=== PATIENT | male | born 1980 | race Caucasian/White ===

== ENCOUNTER 2020-04-02 14:57 | Emergency (ER) | payer MEDICAID ==
[~2020-04-02] VITALS: Ht 180.3 cm; Wt 70.3 kg
[2020-04-02 14:57] VITALS: BP 122/84
[2020-04-02] MEDS ORDERED: NALOXONE 0.4 MG/ML VIAL IM ONE (17:25)
[2020-04-02 18:33] VITALS: BP 103/64
== END 2020-04-02 18:33 | disposition home or self-care (01) ==
LOC: MED 14:57 → EDBD 14:57 → MED 18:33
DX: F19.10 Other psychoactive substance abuse, uncomplicated (principal); F11.90 Opioid use, unspecified, uncomplicated; F15.10 Other stimulant abuse, uncomplicated
CPT/HCPCS: 96372; 99283; J2310

== ENCOUNTER 2020-08-29 17:49 | Inpatient (IN) | payer MEDICAID, SELFPAY ==
[~2020-08-29] VITALS: Ht 180.3 cm; Wt 67.1 kg
[2020-08-29 18:05] VITALS: BP 148/64
--- NOTE | 2020-08-29 18:09 | NUR ---
Pt taken to bed 7 via wheelchair from triage.
--- NOTE | 2020-08-29 18:17 | NUR ---
39 y/o male A&OX4 c/o left foot pain and swelling X3days. Pain 9/10 throbbing constant radiating to ankle. Skin is non-intact between the first and second toes. Pt states he is unable to bear weight, took ibuprofen with no relief. Left foot is warm to touch, non-pitting edema +2, erythema noted up to ankle. PMH: HIV + RX: Christian ALFARO
--- NOTE | 2020-08-29 18:25 | NUR ---
Dr. Shaikh at the pt bedside for evaluation.
[2020-08-29] MEDS ORDERED: VANCOMYCIN 1,000 MG in DEXTROSE 5% 250 ML IV ONE (18:50)
--- NOTE | 2020-08-29 18:59 | NUR ---
20g iv placed to left ac, blood drawn at this time
[2020-08-29] MEDS ORDERED: cefTRIAXone 1,000 MG VIAL ONE (19:02)
--- NOTE | 2020-08-29 19:16 | NUR ---
Report given to Leonel GAYTAN, transfered care at this time.
[2020-08-29 19:19] LABS: BASOPHILS % (AUTO) 0.4 % (0.0-2.0); EOSINOPHILS % (AUTO) 0.2 % (0.0-4.0); HEMATOCRIT 39.5 % (36-52); HEMOGLOBIN 13.3 g/dL (12.0-18.0); LYMPHOCYTES # (AUTO) 1.5 K/uL (2.0-11.5); LYMPHOCYTES % (AUTO) 23.4 % (20.5-51.1); MEAN CORPUSCULAR HEMOGLOBIN 30 pg (27-31); MEAN CORPUSCULAR HGB CONC 34 g/dL (33-37); MONOCYTES # (AUTO) 0.9 K/uL (0.8-1.0); MONOCYTES % (AUTO) 13.6 % (1.7-9.3); NEUTROPHILS # (AUTO) 4.1 K/uL (1.8-7.7); NEUTROPHILS % (AUTO) 62.4 % (42.2-75.2); PLATELET COUNT (AUTO) 191 K/uL (140-450); RED BLOOD CELL COUNT(AUTO) 4.39 MIL/uL (4.20-6.10); RED CELL DISTRIBUTION WIDTH 13.1 % (11.6-13.7); WHITE BLOOD COUNT (AUTO) 6.6 K/uL (4.8-10.8)
--- NOTE | 2020-08-29 19:20 | NUR ---
RECEIVED REPORT FROM LUCILA FRASER FOR CONTINUITY OF CARE.
[2020-08-29 19:29] LABS: PROTHROMBIN TIME 9.9 secs (10.8-13.4)
[2020-08-29 19:30] LABS: ALBUMIN 3.3 g/dL (3.4-5.0); ANION GAP 12.9 (8-16); CARBON DIOXIDE 28.2 mmol/L (21-32); POTASSIUM 4.1 mmol/L (3.5-5.1); TOTAL BILIRUBIN 0.5 mg/dL (0.0-1.0)
[2020-08-29] MEDS ORDERED: VANCOMYCIN 1,000 MG VIAL ONE (19:32)
[2020-08-29] MEDS ORDERED: CLINDAMYCIN 600 MG in DEXTROSE 5% 50 ML IV SCH (20:20)
--- NOTE | 2020-08-29 20:47 | NUR ---
PT RESTING IN BED, HOB ELEVATED. RR EVEN AND UNLABORED. NO NEW CONCERNS AT THIS TIME. BED LOCKED AND IN LOWEST POSITION, SIDE RAIL UPX1. WILL CONTINUE TO MONITOR.
[2020-08-29] MEDS ORDERED: MORPHINE SULFATE 4 MG/ML SYR IVP ONE (21:35)
[2020-08-29] MEDS ORDERED: guaiFENesin DM 200/20 MG-10 ML 10 ML UDC PO PRN (21:45)
[2020-08-29] MEDS ORDERED: ONDANSETRON 4 MG/2 ML VIAL IM/IVP PRN (21:45)
[2020-08-29] MEDS ORDERED: POTASSIUM CHLORIDE 10 MEQ TABER PO PRN (21:45)
[2020-08-29] MEDS ORDERED: DEXT 5% /NACL 0.9% 1,000 ML IV SCH (21:45)
[2020-08-29] MEDS ORDERED: DOCUSATE SODIUM 100 MG GELCAP PO PRN (21:45)
[2020-08-29] MEDS ORDERED: ACETAMINOPHEN 325 MG TAB PO PRN (21:45)
[2020-08-29] MEDS ORDERED: ZOLPIDEM 5 MG TAB PO PRN (21:45)
--- NOTE | 2020-08-29 21:50 | NUR ---
DR. MARY ESCAMILLA REQUESTED PAIN MEDICATIONS FOR PT PRIOR TO WOUND TREATMENT. SNEHA MADE AWARE AND GAVE NEW ORDER FOR MORPHINE 4MG IVP.
--- NOTE | 2020-08-29 22:26 | NUR ---
JEWELL SWAB COLLECTED AND WALKED OVER TO LAB.
[2020-08-29 22:37] LABS: CHOL/HDL RATIO 2.2 (1-4.5); FREE T4 (FREE THYROXINE) 1.08 ng/dL (0.76-1.46); MAGNESIUM 1.8 mg/dL (1.8-2.4); PHOSPHORUS 3.7 mg/dL (2.5-4.9); THYROID STIMULATING HORMONE 1.42 uIU/mL (0.34-3.74)
--- NOTE | 2020-08-29 22:43 | NUR ---
UA COLLECTED AND WALKED OVER TO LAB.
--- NOTE | 2020-08-29 22:51 | NUR ---
PT SLEEPING IN BED, HOB ELEVATED. CHEST RISE AND FALL NOTED. NO NEW CONCERNS AT THIS TIME. PT ATTACHED TO PROCESS EXCELLENCE MANAGER AND PULSE OXIMETRY. BED LOCKED AND IN LOWEST POSITION, SIDE RAIL UPX1. WILL CONTINUE TO MONITOR.
--- NOTE | 2020-08-29 23:45 | NUR ---
GAVE REPORT TO LUCILA STUBBS REGARDING PT STATUS.
[2020-08-29] MEDS ORDERED: ELVI1TAB2 PO (23:52)
[2020-08-29 23:54] LABS: APPEARANCE,URINE CLEAR (CLEAR); BILIRUBIN,URINE NEGATIVE (NEGATIVE); BLOOD, URINE NEGATIVE (NEGATIVE); COLOR,URINE YELLOW (YELLOW); LEUKOCYTE ESTERASE ,URINE NEGATIVE (NEGATIVE); NITRITE, URINE NEGATIVE (NEGATIVE); UGLUCOSE NEGATIVE (NEGATIVE)
[2020-08-30 00:15] VITALS: BP 111/64
--- NOTE | 2020-08-30 00:15 | NUR ---
RECEIVED PATIENT FROM ER VIA WHEELCHAIR IN STABLE CONDITION FOR CONTINUITY OF CARE. AAOX4. RESPIRATIONS EVEN, UNLABORED. NO C/O PAIN. NO S/S ACUTE DISTRESS. SKIN ASSESSMENT COMPLETE. MD DID FIRST DRESSING IN THE ER. DRESSING TO LEFT FOOT CLEAN/DRY AND INTACT. IV SITE TO LEFT AC 20G PATENT/INTACT, INFUSING FLUIDS WELL. ABDOMEN SOFT, NONTENDER, NONDISTENDED. BOWEL SOUNDS ACTIVE X4 QUADRANTS. PATIENT IS CONTINENT OF B/B. ORIENTED TO ROOM/STAFF AND CALL LIGHT. MRSA SCREEN COMPLETED. SAFETY PRECAUTIONS IN PLACE. CALL LIGHT WITHIN REACH AT ALL TIMES.
[2020-08-30 00:27] LABS: BARBITURATE, URINE NEGATIVE ng/ml (NEG <=200); BENZODIAZEPINE, URINE NEGATIVE ng/mL (NEG <=200); CANNABINOID, URINE NEGATIVE ng/mL (NEG <=50); COCAINE, URINE NEGATIVE ng/mL (NEG <=300); OPIATE, URINE NEGATIVE ng/mL (NEG <=2000); PHENCYCLIDINE SCREEN,URINE NEGATIVE ng/mL (NEG <=25)
--- NOTE | 2020-08-30 00:27 | NUR ---
Patient will be admitted to care of DR. ESCAMILLA. Admited to MED-SURG. Will go to room 104A. Belongings list completed. Report to LUCILA STUBBS.
--- NOTE | 2020-08-30 01:48 | NUR ---
PATIENT IS ASLEEP. NO S/S ACUTE DISTRESS. CALL LIGHT WITHIN REACH.
--- NOTE | 2020-08-30 03:52 | NUR ---
MADE ROUNDS. PATIENT IS ASLEEP. NO S/S ACUTE DISTRESS. CALL LIGHT WITHIN REACH.
--- NOTE | 2020-08-30 05:30 | NUR ---
PATIENT ASLEEP. NO S/S ACUTE DISTRESS. CALL LIGHT WITHIN REACH.
[2020-08-30 08:00] VITALS: BP 108/63
[2020-08-30 08:07] LABS: BASOPHILS % (AUTO) 0.5 % (0.0-2.0); EOSINOPHILS # (AUTO) 0.1 K/uL (0-0.4); EOSINOPHILS % (AUTO) 1.3 % (0.0-4.0); HEMATOCRIT 37.9 % (36-52); HEMOGLOBIN 12.6 g/dL (12.0-18.0); LYMPHOCYTES # (AUTO) 1.3 K/uL (2.0-11.5); LYMPHOCYTES % (AUTO) 24.1 % (20.5-51.1); MEAN CORPUSCULAR HEMOGLOBIN 30 pg (27-31); MEAN CORPUSCULAR HGB CONC 33 g/dL (33-37); MEAN CORPUSCULAR VOLUME 90.3 fL (80-94); MONOCYTES # (AUTO) 0.9 K/uL (0.8-1.0); NEUTROPHILS % (AUTO) 57.1 % (42.2-75.2); PLATELET COUNT (AUTO) 182 K/uL (140-450); RED CELL DISTRIBUTION WIDTH 13.1 % (11.6-13.7); WHITE BLOOD COUNT (AUTO) 5.2 K/uL (4.8-10.8)
[2020-08-30 08:10] LABS: ANION GAP 9.9 (8-16); CARBON DIOXIDE 27.8 mmol/L (21-32); CREATININE 0.8 mg/dL (0.6-1.3); POTASSIUM 3.7 mmol/L (3.5-5.1)
--- NOTE | 2020-08-30 08:31 | NUR ---
PATIENT HAS BEEN SCREENED AND CATEGORIZED HIGH NUTRITION RISK. PATIENT WILL BE SEEN WITHIN 1-2 DAYS OF ADMISSION. 08/30/20-08/31/[address]
[2020-08-30] MEDS: PANTOPRAZOLE 40 MG TABEC PO SCH ×2 (08:52→09:26)
[2020-08-30] MEDS: HYDROcodone/APAP 7.5/325 MG 1 TAB PO PRN ×2 (10:11→18:38)
--- NOTE | 2020-08-30 10:11 | NUR ---
NORCO GIVEN FOR LEFT FOOT PAIN 03/23, PER PATIENT'S REQUEST. EDUCATION PROVIDED. SAFETY MEASURES IN PLACE, CALL LIGHT WITHIN REACH. WILL CONTINUE TO MONITOR.
--- NOTE | 2020-08-30 11:35 | NUR ---
DC PLANNIN YRS OLD MALE PATIENT WAS ADMITTED FROM HOME WITH A DX OF METATARSAL FRACTURE, CELLULITIS. PT HAS NO MEDICAL HISTORY. FOOT XRAY SHOWED SMALL INTRA-ARTICULAR FRACTURE AT THE BASE OF THE METATARSAL. XR LEFT TIBIAL/FIBULA SHOWED INTACT LEFT TIBIA AND FIBULA AND SOFT TISSUE SWELLING AROUND THE MID AND DISTAL LEG. CXR NORMAL CHEST. RAPID COVID TEST NEGATIVE, BLOOD CULTURE PENDING. SEEN BY PODIATRY DR BATES GROUP DR OSMAR ESCAMILLA PERFORMED DRESSING CHANGE WITH PACKING AND APPLIED POSTERIOR SPLINT. AND WILL CONTINUE TO SEE PATIENT FOR DRESSING CHANGE WHILE IN THE HOSPITAL AND RECOMMENDED PT TO FOLLOW UP WITHIN A WEEK AFTER DISCHARGE. DC PLAN TO GO HOME WHEN STABLE CM TO FOLLOW. Addendum: 08/30/20 at 1526 by Estefania Lujan CM DC LAMINATING MACHINE FEEDER: FAXED ORDER FOR WALKER TO [facility]. WILL FOLLOW UP. Addendum: 08/31/20 at 1452 by Estefania Lujan CM JAMIL GABRIEL: RECEIVED CALL FROM KALEY AT [facility] THE PATIENTS WALKER WILL BE DELIVERED TODAY TO BED SIDE. Addendum: 08/31/20 at 1543 by Estefania Lujan CM JAMIL GABRIEL: FAXED PATIENTS CLINICALS FOR HOME HEALTH TO [facility] FOR WOUND CARE. WILL FOLLOW UP Addendum: 08/31/20 at 1640 by Estefania Lujan CM JAMIL GABRIEL: SPOKE TO ERON AT [facility] THEY ARE ABLE TO ACCEPT THIS PATIENT. Addendum: 09/02/20 at 1210 by Estefania Lujan CM JAMIL GABRIEL: SPOKE TO PATIENT REGARDING DISCHARGE. PATIENT STATED THAT HE HAS A PLACE TO GO TO WHICH IS HIS SISTERS HOUSE IN [place] BUT HE JUST NEEDS TRANSPORTATION. NOTIFIED LUCILA PAGAN TO ASK DEE LORA FOR A TAXI VOUCHER. Addendum: 09/02/20 at 1217 by Estefania Lujan CM JAMIL GABRIEL: CONTACTED ERON AT [facility] TO PROVIDE HER WITH PATIENTS CORRECT ADDRESS [address] [place] [phone]
[2020-08-30] MEDS ORDERED: VANCOMYCIN PER PHARMACY MC PRN (13:40)
--- NOTE | 2020-08-30 14:45 | NUR ---
SOCIAL WORK NOTE: HUBERT WAS UNABLE TO MEET PATIENT AT BEDSIDE DUE TO MEDICAL CONDITION. SW CONTACTED ROOM PHONE BUT PATIENT DID NOT ANSWER. HUBERT CONTACTED PATIENT'S SISTER RAMONA JOSEPH [phone] TO COMPLETE ASSESSMENT. SW LEFT VM. HUBERT ALSO CONTACTED PATIENT'S NURSE TO SEE IF THERE WERE ADDITIONAL FAMILY MEMBERS WHO CONTACTED PATIENT. RN STATED THAT NO FAMILY HAS CALLED THE HOSPITAL YET. HUBERT WILL FOLLOW UP. Addendum: 08/31/20 at 1501 by Vaughn Farr SS HUBERT CONTACTED RN BUT NO FAMILY MEMBERS CONTACT INFORMATION WAS AVAILABLE. HUBERT WILL FOLLOW UP.
[2020-08-30] MEDS: VANCOMYCIN HCL 1.25 GM in DEXTROSE 5% 250 ML IV SCH ×2 (15:20→23:15)
--- NOTE | 2020-08-30 15:20 | NUR ---
FIRST DOSE OF IV VANCOMYCIN GIVEN. EDUCATION PROVIDED. NO ACUTE DISTRESS NOTED. SAFETY MEASURES IN PLACE, WILL CONTINUE TO MONITOR.
[2020-08-30 16:00] VITALS: BP 102/63
[2020-08-30] MEDS: NACL 0.9% 1,000 ML IV SCH (16:14)
--- NOTE | 2020-08-30 18:38 | NUR ---
JUAN GIVEN FOR LEFT FOOT PAIN 03/23. EDUCATION PROVIDED. PATIENT VERBALIZED UNDERSTANDING. SAFETY MEASURES IN PLACE. CALL LIGHT WITHIN REACH. WILL CONTINUE TO MONITOR.
--- NOTE | 2020-08-30 19:46 | NUR ---
ENDORSED PATIENT TO CEMENT MASON MAINTENANCE RN FOR CONTINUITY OF CARE. PATIENT IN STABLE CONDITION.
--- NOTE | 2020-08-30 19:47 | NUR ---
received report at bedside.pt is awake,alert and oriented x 4.has splint on lt leg.ivf of ns at 60ml.h infusing well.resp.unlabored.lungs clear.call light in reach.will cont.monitoring.
[2020-08-30 20:00] VITALS: BP 101/60
--- NOTE | 2020-08-31 05:49 | NUR ---
PT IS SLEEPING.IVF IS IN PROGRESS.NO DISTRESS NOTED AT PRESENT TIME.VS WNL.
[2020-08-31] MEDS: VANCOMYCIN HCL 1.25 GM in DEXTROSE 5% 250 ML IV SCH ×3 (06:52→15:00)
[2020-08-31 07:14] LABS: BASOPHILS % (AUTO) 0.3 % (0.0-2.0); EOSINOPHILS # (AUTO) 0.1 K/uL (0-0.4); EOSINOPHILS % (AUTO) 3.1 % (0.0-4.0); HEMATOCRIT 37.4 % (36-52); HEMOGLOBIN 12.5 g/dL (12.0-18.0); LYMPHOCYTES # (AUTO) 1.4 K/uL (2.0-11.5); LYMPHOCYTES % (AUTO) 31.4 % (20.5-51.1); MEAN CORPUSCULAR HEMOGLOBIN 30 pg (27-31); MEAN CORPUSCULAR HGB CONC 33 g/dL (33-37); MEAN CORPUSCULAR VOLUME 90.9 fL (80-94); MONOCYTES # (AUTO) 0.8 K/uL (0.8-1.0); MONOCYTES % (AUTO) 17.5 % (1.7-9.3); NEUTROPHILS # (AUTO) 2.1 K/uL (1.8-7.7); NEUTROPHILS % (AUTO) 47.7 % (42.2-75.2); PLATELET COUNT (AUTO) 169 K/uL (140-450); RED BLOOD CELL COUNT(AUTO) 4.11 MIL/uL (4.20-6.10); WHITE BLOOD COUNT (AUTO) 4.5 K/uL (4.8-10.8)
--- NOTE | 2020-08-31 07:28 | NUR ---
REPORT GIVEN TO CHARISSA RN.PT'S CONDITION IS STABLE.
--- NOTE | 2020-08-31 07:29 | NUR ---
RECEIVED REPORT FROM TRANSPORT ASSISTANT NURSE BRITTNI-RN. PT RESTING IN BED, AOX4, ON ROOM AIR WITH LEFT AC #20G RUNNING VANCOMYCIN. LEFT TOES COVERED WITH DONN BANDAGE DUE TO METATARSAL FRACTURE AND CELLULITIS. DISCUSSED PLAN OF CARE AND PT VERBALIZED UNDERSTANDING. FALL PRECAUTIONS IN PLACE. NO S/S OF RESPIRATORY DISTRESS AND DISCOMFORT NOTED AT THIS TIME. WILL CONTINUE TO MONITOR.
[2020-08-31 07:48] LABS: ANION GAP 8.7 (8-16); CARBON DIOXIDE 32.1 mmol/L (21-32); POTASSIUM 4.8 mmol/L (3.5-5.1)
[2020-08-31 08:00] VITALS: BP 144/55
[2020-08-31] MEDS: NACL 0.9% 1,000 ML IV SCH (08:20)
[2020-08-31] MEDS: PANTOPRAZOLE 40 MG TABEC PO SCH (08:23)
[2020-08-31] MEDS: HYDROcodone/APAP 7.5/325 MG 1 TAB PO PRN (08:24)
--- NOTE | 2020-08-31 08:24 | NUR ---
SCHEDULED MEDICATION PROTONIX GIVEN AND TOLERATED WELL. PT C/O PAIN 03/23 AND MEDICATED WITH NORCO. PT TOLERATED WELL. NO S/S OF RESPIRATORY DISTRESS AND DISCOMFORT NOTED AT THIS TIME. WILL CONTINUE TO MONITOR.
[2020-08-31 09:06] LABS: T4 (THYROXINE) 11.5 ug/dL (4.5-12.0)
--- NOTE | 2020-08-31 09:07 | NUR ---
WOUND CARE CONSULT NOT DONE PT. SEEN AND TREATED BY PODIATRY TEAM. PER DR. ESCAMILLA ,DPM RESIDENT,"Podiatry will continue with daily dressing changes while patient is inhouse".
--- NOTE | 2020-08-31 10:30 | NUR ---
PT RESTING IN BED. NO S/S OF RESPIRATORY DISTRESS AND DISCOMFORT NOTED AT THIS TIME. WILL CONTINUE TO MONITOR.
--- NOTE | 2020-08-31 12:30 | NUR ---
PT RESTING IN BED. NO S/S OF RESPIRATORY DISTRESS AND DISCOMFORT NOTED AT THIS TIME. WILL CONTINUE TO MONITOR.
--- NOTE | 2020-08-31 13:00 | NUR ---
08/31/20 RD INITIAL ASSESSMENT COMPLETED PLEASE REFER TO NUTRITION ASSESSMENT UNDER CARE ACTIVITY FOR ESTIMATED NUTRITIONAL NEEDS. 1. CONTINUE REGULAR DIET TOLERATED 2. RECOMMEND ENSURE TID 3. RD PROVIDED GENERAL HEALTHY NUTRITION EDUCATION. PT ACCEPTED. 4. RD TO FOLLOW-UP 3-5 DAYS, MODERATE RISK REN TYLER RD
--- NOTE | 2020-08-31 14:30 | NUR ---
PT RESTING IN BED. NO S/S OF RESPIRATORY DISTRESS AND DISCOMFORT NOTED AT THIS TIME. WILL CONTINUE TO MONITOR.
--- NOTE | 2020-08-31 15:30 | NUR ---
CRITICAL LAB VALUE VANCO TROUGH 21.2- HOLD VANCOMYCIN. DR. SALVADOR IS AWARE
[2020-08-31 16:00] VITALS: BP 104/62
--- NOTE | 2020-08-31 16:00 | NUR ---
PT RESTING IN BED. NO S/S OF RESPIRATORY DISTRESS AND DISCOMFORT NOTED AT THIS TIME. WILL CONTINUE TO MONITOR.
--- NOTE | 2020-08-31 18:00 | NUR ---
PT RESTING IN BED. VANCO NOT GIVEN. PER PHARMACY- VANCO RANDOM 09/01 @ 0600
[2020-09-01] MEDS: NACL 0.9% 1,000 ML IV SCH ×2 (01:00→17:40)
[2020-09-01] MEDS ORDERED: LIDOCAINE MPF 1% 10 ML ONE (04:59)
--- NOTE | 2020-09-01 07:10 | NUR ---
RECEIVED REPORT FROM NIGHT NURSE. PATIENT AWAKE AND ALERT. AMBULATING FROM BATHROOM TO BED WITH SLOW STEADY GAIT. C/O PAIN TO LEFT LEG, WILL MEDICATE APPROPRIATELY. RESP EVEN AND UNLABORED ON ROOM AIR. DENIED OF ANY SOB FROM AMBULATING. LAC 20G NOTED SL. PLAN OF CARE DISCUSSED WITH PATIENT. PATIENT VERBALIZED UNDERSTANDING. CALL LIGHT WITHIN REACH. WILL CONTINUE TO MONITOR.
[2020-09-01 08:00] VITALS: BP 113/72
[2020-09-01] MEDS: PANTOPRAZOLE 40 MG TABEC PO SCH (09:45)
[2020-09-01] MEDS: HYDROcodone/APAP 7.5/325 MG 1 TAB PO PRN ×3 (09:45→21:11)
--- NOTE | 2020-09-01 09:54 | NUR ---
MORNING ROUTINE MEDICATIONS GIVEN. PATIENT TOLERATED WELL. PATIENT SITTING UP IN BED AWAKE AND ALERT ORIENTED X4. RESP EVEN AND UNLABORED ON ROOM AIR. NORCO GIVEN D/T PAIN TO LEFT FOOT. AFFECTED AREA IS WRAPPED IN DONN BANDAGE WITH POST OP SHOW IN PLACE AND INTACT, NO ACTIVE BLEEDING NOTED. PATIENT ENCOURAGED TO USE NON WEIGHT BEARING TO AFFECTED EXTREMITY. PATIENT VERBALIZED UNDERSTANDING. WALKER BY BEDSIDE, PATIENT BEEN AMBULATING WITH STEADY GAIT. PATIENT ABLE TO MAKE NEEDS KNOWN. CALL LIGHT WITHIN REACH. WILL CONTINUE TO MONITOR.
[2020-09-01 10:24] LABS: ANION GAP 8.2 (8-16); POTASSIUM 4.2 mmol/L (3.5-5.1)
[2020-09-01 10:37] LABS: RED BLOOD CELL COUNT(AUTO) 4.27 MIL/uL (4.20-6.10); WHITE BLOOD COUNT (AUTO) 3.5 K/uL (4.8-10.8)
[2020-09-01 10:42] LABS: HEMATOCRIT 38.6 % (36-52); HEMOGLOBIN 12.9 g/dL (12.0-18.0); MEAN CORPUSCULAR HEMOGLOBIN 30 pg (27-31); MEAN CORPUSCULAR VOLUME 90.4 fL (80-94)
[2020-09-01 10:43] LABS: BASOPHILS % (AUTO) 0.6 % (0.0-2.0); EOSINOPHILS % (AUTO) 3.3 % (0.0-4.0); LYMPHOCYTES % (AUTO) 40.1 % (20.5-51.1); MEAN CORPUSCULAR HGB CONC 33 g/dL (33-37); NEUTROPHILS # (AUTO) 1.4 K/uL (1.8-7.7); PLATELET COUNT (AUTO) 195 K/uL (140-450); RED CELL DISTRIBUTION WIDTH 12.9 % (11.6-13.7)
[2020-09-01 10:44] LABS: LYMPHOCYTES # (AUTO) 1.4 K/uL (2.0-11.5); MONOCYTES # (AUTO) 0.6 K/uL (0.8-1.0); PHOSPHORUS 3.5 mg/dL (2.5-4.9)
[2020-09-01 10:45] LABS: EOSINOPHILS # (AUTO) 0.1 K/uL (0-0.4)
--- NOTE | 2020-09-01 12:06 | NUR ---
PATIENT IN BED AWAKE AND ALERT. RESP EVEN AND UNLABORED ON ROOM AIR. DENIED OF PAIN AT THIS TIME. CALL LIGHT WITHIN REACH. WILL CONTINUE TO MONITOR.
[2020-09-01] MEDS: VANCOMYCIN 750 MG in DEXTROSE 5% 250 ML IV SCH ×2 (13:13→22:50)
--- NOTE | 2020-09-01 14:25 | NUR ---
PATIENT IN BED AWAKE AND ALERT. RESP EVEN AND UNLABORED ON ROOM AIR. DENIED OF PAIN AT THIS TIME. LEFT LEG STILL ELEVATED ON PILLOW. CAP REFIL <3 SECS WITH GOOD MOVEMENT. CALL LIGHT WITHIN REACH. WILL CONTINUE TO MONITOR.
--- NOTE | 2020-09-01 15:33 | NUR ---
SOCIAL WORK NOTE: Patient's Orientation Person Situation Place Time Information Provided By PATIENT Comments SW MET WITH PATIENT AT BEDSIDE TO COMPLETE ASSESSMENT. Development Eng, Realtionship and Phone Number RAMONA JOSEPH SISTER [phone] ROCKY MORALES MOTHER [phone] Identifying Problems No Social Work Triggers Is A Social Work Consult Needed No Mandate Report Filed No Explanation Of Identifying Problems PATIENT IS A 39-YEAR-OLD MALE ADMITTED FOR METATARSAL FRACTURE. PATIENT HAS PMHX OF HIV+. PATIENT REPORTED NO HISTORY OF SUBSTANCE ABUSE OR MENTAL HEALTH. Admitted From Home Pre-Admission Level Of Functioning Status Independent/Ambulatory Prior Resources/Services Used In Last 12 Months No Prior Resources Used Prior DME No Prior DME Used Dialysis Comments N/A Living Situation Lives With Family House Other Living Situation/Comment PATIENT REPORTED LIVING WITH MOTHER, BUT MOVING TO [place]. PATIENT DOES NOT HAVE NEW ADDRESS. Patient Had Caregiver No Home Support No Caregiver Issues Financial Issues No Known Financial Issue Referral To The Financial Counselor Needed No Factors/Needs No D/C Needs Identified Pt/Rep Participated In Discharge Plan Yes Patient/Family Agress With Discharge Plan Yes Discharge Plan Comments TENTATIVE DISCHARGE PLAN IS FOR PATIENT TO RETURN HOME. DC Plan Status Initiated
[2020-09-01 16:00] VITALS: BP 114/59
[2020-09-01] MEDS ORDERED: SULF-59 PO (16:02)
[2020-09-01] MEDS ORDERED: LACT1.4C PO (16:02)
--- NOTE | 2020-09-01 16:57 | NUR ---
JUAN GIVEN D/T C/O PAIN TO LEFT LOWER LEG. ENCOURAGED PATIENT TO ELEVATE LEG WHILE IN BED AND USE NWB WHILE AMBULATING. PATIENT USES WALKER TO BATHROOM WITHOUT ANY DIFFICULTY. CALL LIGHT WITHIN REACH. WILL CONTINUE TO MONITOR.
--- NOTE | 2020-09-01 18:20 | NUR ---
DISCHARGE INSTRUCTIONS GIVEN. PATIENT VERBALIZED UNDERSTANDING. DENIED OF PAIN AT THIS TIME. RESP EVEN AND UNLABORED ON ROOM AIR. PATIENT PENDING DISCHARGE AND IS WAITING FOR HIS RIDE FROM HIS FRIEND. ENDORSED TO ONCOMING NURSE.
[2020-09-01 18:25] VITALS: BP 114/59
--- NOTE | 2020-09-01 19:25 | NUR ---
ENDORSED PATIENT TO NIGHT NURSE. PATIENT WAITING FOR HIS RIDE. IN STABLE CONDITION.
--- NOTE | 2020-09-01 20:00 | NUR ---
RECEIVED PATIENT REPORT. PT AWAKE AND ALERT IN BED. PT ON ROOM AIR. NO SOB OR S/S OF DISTRESS AT THIS TIME. LEFT FOOT ELEVATED ON PILLOWS IN DRESSING CDI. CRUTCHES AND WALKER NOTED AT BEDSIDE. BED LOWERED WITH CALL LIGHT WITHIN REACH. WILL CONTINUE TO MONITOR
--- NOTE | 2020-09-01 21:55 | NUR ---
FOLLOWED UP WITH DISCHARGE, UNABLE TO REACH SISTER, OR ANY FAMILY FOR PICKUP. PT STATES HE MOVED FROM ANOTHER STATE, AND NOT FAMILIAR WITH AREA. UPDATED MD WITH DISCHARGE STATUS. MD STATED TO HOLD DISCHARGE TONIGHT. HAVE CM FOLLOW UP IN AM WITH DISCHARGE PLANNING. UPDATED FORESTRY SUPPORT SPECIALIST, AND PRIMARY CARE RN.
--- NOTE | 2020-09-02 00:30 | NUR ---
PT ASLEEP IN BED. NO S/S OF DISTRESS NOTED
[2020-09-02 01:00] VITALS: BP 112/67
[2020-09-02] MEDS: VANCOMYCIN 750 MG in DEXTROSE 5% 250 ML IV SCH (05:46)
--- NOTE | 2020-09-02 07:40 | NUR ---
PATIENT ENDORSED TO AM NURSE. PT IN STABLE CONDITION
--- NOTE | 2020-09-02 07:41 | NUR ---
RECEIVED REPORT FROM PM RN FOR CONTINUITY OF CARE. PT IS STABLE AT THIS TIME. SAFETY MEASURES IN PLACE. WILL CONTINUE WITH POC.
[2020-09-02 08:00] VITALS: BP 112/73
--- NOTE | 2020-09-02 09:55 | NUR ---
PT IS AWAKE AND ALERT, ORIENTED X 4 IN NO DISTRESS. LUNG SOUNDS CLEAR, ABDOMINAL FLAT, SOFT AND NONTENDER WITH ACTIVE BS X 4. LEFT FOOT WRAPPED AND ELEVATED. TOLERATED PO MEDICATION WITH NO PROBLEMS. STATES HE IS STILL TRYING TO GET AHOLD OF HIS SISTER. DISCHARGE PENDING. WILL F/U WITH MD. SAFETY MEASURES IN PLACE. WILL CONTINUE WITH POC. IV ACCESS ON LEFT AC NO LONGER PATENT AND INTACT, CATH WAS REMOVED INTACT AND PENDING TO SEE IF PT WILL BE DISCHARGED.
[2020-09-02] MEDS: PANTOPRAZOLE 40 MG TABEC PO SCH (10:16)
[2020-09-02] MEDS: NACL 0.9% 1,000 ML IV SCH (10:20)
--- NOTE | 2020-09-02 11:45 | NUR ---
SPOKE WITH MARIA ELENA WHO STATED PT HAS A PLACE TO GO ADDRESS PROVIDED [address] [place] [id number], ACCORDING TO PT HE WILL BE GOING TO [facility]. TRANSPORTATION IS BEING SET UP.
--- NOTE | 2020-09-02 13:30 | NUR ---
PT DISCHARGED AT THIS TIME PT IS STABLE IN NO DISTRESS. DISCHARGE WITH INSTRUCTIONS AND CRUTCHES. PT LEFT WHEELCHAIR BEHIND STATING HE COULD NOT CARRYING EVERYTHING BACK HOME. PT REPORTS HE LIVES IN AN UPSTAIRS APARTMENT WITH HIS SISTER. TAXI VOUCHER PROVIDED FOR THE ADDRESS PROVIDED. PT VERBALIZED UNDERSTANDING OF DISCHARGE INSTRUCTIONS AND FOLLOW UP CARE AND HAD NO QUESTIONS.
== END 2020-09-02 13:30 | disposition home or self-care (01) | DRG 892 ==
LOC: MED 17:49 → MTU 21:13
PROVIDERS: ADMIT Family Medicine; ATTEND Family Medicine
DX: A41.9 Sepsis, unspecified organism (principal); Z68.20 Body mass index [BMI] 20.0-20.9, adult; S92.309A Fracture of unspecified metatarsal bone(s), unspecified foot, initial encounter for closed fracture; W18.39XA Other fall on same level, initial encounter; Y93.89 Activity, other specified; Y92.89 Other specified places as the place of occurrence of the external cause; Y99.8 Other external cause status; M76.60 Achilles tendinitis, unspecified leg; L03.116 Cellulitis of left lower limb; F15.10 Other stimulant abuse, uncomplicated; E44.1 Mild protein-calorie malnutrition; L98.499 Non-pressure chronic ulcer of skin of other sites with unspecified severity; Z20.828 Contact with and (suspected) exposure to other viral communicable diseases; B20 Human immunodeficiency virus [HIV] disease
CPT/HCPCS: 36415; 71045; 73590; 73630; 80048; 80053; 80202; 80305; 81003; 82150; 83036; 83690; 83735; 83880; 84100; 84436; 84439; 84443; 84479; 84484; 85025; 85610; 86140; 86360; 87040; 87070; 87075; 87081; 87186; 87205; 97110; 97112; 97116; 97161-GP; 97530; 99285; J0696; J2001; J2270; J3370; J7030; J7060